=== PATIENT | female | born 1990 | race Caucasian/White ===

== ENCOUNTER 2017-02-18 11:25 | Emergency (ER) | payer MEDICAID ==
[~2017-02-18] VITALS: Ht 160 cm; Wt 78.9 kg
[2017-02-18 11:28] VITALS: BP 121/72
== END 2017-02-18 12:02 | disposition home or self-care (01) ==
LOC: ER 11:28
DX: N20.0 Calculus of kidney (principal); J45.909 Unspecified asthma, uncomplicated; Z51.5 Encounter for palliative care; Z87.442 Personal history of urinary calculi
CPT/HCPCS: 99283; A4606; Z7610; Z7502